=== PATIENT | female | born 2005 | race Caucasian/White ===

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

== ENCOUNTER 2025-01-29 16:37 | Emergency (ER) | payer OTHER, SELFPAY ==
--- NOTE | 2025-01-29 16:38 | ED.UPPEXIN ---
HPI - Extremity Injury (Upper) General Chief Complaint: Extremity Injury, Upper Stated Complaint: Injured Wrist Time Seen by Provider: 01/29/25 16:37 Source: patient Mode of arrival: ambulatory Limitations: no limitations History of Present Illness HPI narrative: Radha is a 19-year-old female patient presenting to the clinic today with complaints of left wrist/thumb pain x2 days. She reports 3 days ago her dog pulled her wrist from a leash. She denies any pain at that time. Developed some pain over the proximal thumb/radial wrist. Has taken Tylenol for her symptoms. 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 Denies any numbness or tingling in her fingers. Related Data Allergies Allergy/AdvReac Type Severity Reaction Status Date / Time ibuprofen AdvReac Abdominal Verified 01/29/25 16:51 Pain Review of Systems Review of Systems: Pertinent positives per HPI. Patient denies any fever, chills, rash, headache, visual changes, dizziness, cough, runny nose, sore throat, shortness of breath, chest pain, palpitations, nausea, vomiting, diarrhea, constipation, abdominal pain, or any urinary issues. [facility] [place] Past Medical History Medical History Nexplanon insertion 04/14/2020 No active medical problems Social History Social History Smoking status: Never smoker Alcohol intake: never Substance use: never Substance use type: does not use Do You Feel Safe in your Home?: Yes Lack of Transportation: No Lack of Food: Never True Current Housing: I Have Housing Concerned About Future Housing: No Difficulty Paying Gas/Electric Bills: No Difficulty Paying for Meds: No Currently Unemployed: No Education: High School Diploma/GED Difficulty w/ Childcare or Family Care: No Living arrangements: with family Occupation/Education: occupation 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 There is no relevant family history pertinent to the patient complaint. Exam Narrative: General: Well-developed, well nourished, in no apparent distress Head: Normocephalic, atraumatic. Cardio: Regular rate and rhythm, s1 and s2 normal, no murmur appreciated. Resp: Clear to auscultation bilaterally, no rhonchi, rales, wheezing or rubs. Musculoskeletal: No deformity, tender to palpation over the radius and the proximal thumb, grossly normal range of motion, positive Keshawn test, negative Phalen's and Tinel's, muscle strength strong and equal, peripheral pulse strong, no edema, no cyanosis, normal gait and station Course Course Emergency Course: Portions of this record may have been created with voice recognition software. Level of Care: Express Care Visit Vital Signs Vital signs: Vital Signs Temperature 36.3 C L 01/29/25 16:43 Pulse Rate 89 01/29/25 16:43 Respiratory Rate 18 01/29/25 16:43 Blood Pressure 125/72 01/29/25 16:43 Pulse Oximetry 99 01/29/25 16:43 Oxygen Delivery Room Air 01/29/25 16:43 Temperature 36.3 C L 01/29/25 16:43 Pulse Rate 89 01/29/25 16:43 Respiratory Rate 18 01/29/25 16:43 Blood Pressure 125/72 01/29/25 16:43 Pulse Oximetry 99 01/29/25 16:43 Oxygen Delivery Room Air 01/29/25 16:43 Vital signs reviewed MDM - Extremity Injury (Upper) MDM Narrative Medical decision making narrative: At the time of visit patient is resting comfortably on the exam table. Patient appears to be nontoxic. Plan: I suspect patient likely de Quervain tenosynovitis. Recommend wearing a thumb spica splint and taking ibuprofen as needed for pain. Supportive measures were discussed with the patient and they voiced understanding discharge instructions and agrees to treatment plan. Return precautions reviewed Differential Diagnosis Differential diagnosis: Likely sprain and strain of wrist, fracture of wrist and other (Tendinitis, de Quervain tenosynovitis) Discharge Plan Discharge Clinical Impression: De Quervain's tenosynovitis, left Patient Disposition: Home, Self-Care Condition: Stable Instructions: Antibiotic Form, De Quervain Disease (ED) Additional Instructions: I suspect you have de Quervain tenosynovitis. Rest, ice, elevate, and wear thumb spica splint as discussed May take 600 mg of motrin for pain every 8 hours as discussed. Follow up with your PCP if symptoms persist more than 1 week. Patient Language: Filipino Prescriptions: No Action metronidazole 500 mg tablet 500 mg PO Q12H Qty: 14 0RF Follow-up/Referrals: UNKNOWN,DOCTOR [Non-Staff] - Stand Alone Forms: Work/School Release IP Time of Disposition: 16:55 Quality NIHSS Nursing Documentation ED NIHSS nursing documentation: reviewed/agree
[2025-01-29 16:43] VITALS: BP 125/72; PULSE 89; RESP 18; TEMP 36.3; O2SAT 99
== END 2025-01-29 17:02 | disposition home or self-care (01) ==
PROVIDERS: Emergency Provider Nurse Practitioner Family
DX: M65.4 Radial styloid tenosynovitis [de Quervain] (principal)
CPT/HCPCS: 99212; G0463

== ENCOUNTER 2025-05-29 13:48 | Outpatient (CLI) | payer OTHER, SELFPAY ==
--- NOTE | ~2025-05-29 | US_ITS ---
EXAMINATION: US venous doppler UE RT DATE: 05/29/2025 14:17 INDICATION: Right arm swelling TECHNIQUE: Sorensen scale images with and without compression and Doppler images of the right upper extre mity veins were obtained. COMPARISON: None. FINDINGS: The right internal jugular vein, subclavian vein, axillary vein, brachial veins, basilic vein, cephal ic vein, radial vein, and ulnar vein are patent. IMPRESSION: 1. Patent right upper extremity veins. No evidence of deep venous thrombosis. Reviewed, dictated and finalized at location B.
== END 2025-05-29 13:49 | disposition home or self-care (01) ==
LOC: MICIMG 13:49
PROVIDERS: PCP Nurse Practitioner; Visit Provider Nurse Practitioner
DX: M79.89 Other specified soft tissue disorders (principal)
CPT/HCPCS: 93971

== ENCOUNTER 2025-08-20 15:15 | Emergency (ER) | payer OTHER, SELFPAY ==
[2025-08-20 15:30] VITALS: BP 114/71; PULSE 110; RESP 16; TEMP 36.8; O2SAT 100
[2025-08-20 16:03] LABS: EDSTREPNEGPOS1 Negative (Negative)
--- NOTE | 2025-08-20 16:09 | ED.URI ---
HPI - URI/Sore Throat General Chief Complaint: Upper Respiratory Infection Stated Complaint: nausea, chills, body aches Time Seen by Provider: 08/20/25 15:59 Source: patient and RN notes reviewed Mode of arrival: ambulatory Limitations: no limitations History of Present Illness HPI Narrative: 19-year-old female patient presents today complaining of chills, body aches, headache, diarrhea, and 2 episodes of vomiting. Symptoms began this morning. Last episode of vomiting was after arrival at [facility]. Denies fever, cough, congestion. Currently rates her discomfort 8/10 and has tried no OTC treatment prior to arrival. States sister and niece with similar diarrhea and vomiting symptoms that also started today. Related Data Allergies Allergy/AdvReac Type Severity Reaction Status Date / Time No Known Allergies Allergy Verified 08/20/25 16:55 PMFSH Past Medical History Medical History Nexplanon insertion 04/14/2020 No active medical problems Social History Social History Smoking status: Never smoker Alcohol intake: never Substance use: never Substance use type: does not use Do You Feel Safe in your Home?: Yes Lack of Transportation: No Lack of Food: Never True Current Housing: I Have Housing Concerned About Future Housing: No Difficulty Paying Gas/Electric Bills: No Difficulty Paying for Meds: No Currently Unemployed: No Education: High School Diploma/GED Difficulty w/ Childcare or Family Care: No Living arrangements: with family Occupation/Education: occupation 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 Please see nursing chart for further information. There is no relevant family history pertinent to the presenting complaint Exam Narrative: GENERAL: Mildly ill- appearing, well-nourished, and in no acute distress. HEAD: Normocephalic, atraumatic. EYES: EOMI. No redness or drainage. Conjunctivae normal. ENT: Mucous membranes pink and moist. Nares clear. No rhinorrhea. TMs normal bilaterally. Throat mildly erythematous without edema or exudate. Uvula midline. NECK: Normal AROM. Supple. No lymphadenopathy. CHEST: No respiratory distress. Clear to auscultation. HEART: Regular rate and rhythm. No murmur appreciated. ABDOMEN: Soft, nontender, nondistended, normal active bowel sounds. EXTREMITIES: Normal range of motion. No edema. SKIN: Warm, dry, no rash. Capillary refill normal. Normal skin turgor. NEURO: No focal deficits. Alert and oriented x3. Gait steady. PSYCH: Normal affect. No signs of depression or anxiety. Course Course Emergency Course: 1648- Patient feeling better after Zofran. Discussed dx, spread via fecal-oral route etc. Level of Care: Express [facility] Visit Vital Signs Vital signs: Vital Signs Temperature 98.3 F 08/20/25 15:30 Pulse Rate 110 H 08/20/25 15:30 Respiratory Rate 16 08/20/25 15:30 Blood Pressure 114/71 08/20/25 15:30 Pulse Oximetry 100 08/20/25 15:30 Temperature 98.3 F 08/20/25 15:30 Pulse Rate 110 H 08/20/25 15:30 Respiratory Rate 16 08/20/25 15:30 Blood Pressure 114/71 08/20/25 15:30 Pulse Oximetry 100 08/20/25 15:30 Reviewed MDM - URI/Sore Throat MDM Narrative Medical decision making narrative: 19-year-old female patient presents today complaining of chills, body aches, headache, diarrhea, and 2 episodes of vomiting. Symptoms began this morning. Last episode of vomiting was after arrival at [facility]. Sister and niece with similar symptoms. No OTC treatment prior to arrival. Upon exam, patient is mildly ill appearing with mildly erythematous throat. Rapid strep negative. Culture pending. Feeling better after Zofran. Symptoms likely viral in etiology. Prescription for Zofran sent to pharmacy. Recommend rest, oral fluids with advancement as tolerated. Patient agrees with plan. Anticipatory guidance given Differential Diagnosis Differential diagnosis: Likely viral infection and other (Gastroenteritis, food poisoning) Lab Data Attestation: I reviewed the patient's lab results. Labs: Lab Results 08/20/25 Range/Units 15:23 POC Grp A Strep Screen Negative (Negative) Critical Care Time Critical Care Time Critical Care Time: No Discharge Plan Discharge Clinical Impression: Nausea vomiting and diarrhea Patient Disposition: Home Condition: Stable Instructions: Acute Nausea and Vomiting (DC), Acute Diarrhea (ED) Additional Instructions: Your symptoms are likely due to a viral illness, which is not treated with antibiotics. Virus symptoms can last for up to 7-10days. Take the Zofran as prescribed for nausea and vomiting. Rest and stay hydrated. Follow up with your PCP in 5 days if symptoms are not improving. Go to the ER immediately if you cannot keep fluids down even with the Zofran, develops severe abdominal pain or fever that does come down with Tylenol, or are feeling dehydrated. Patient Language: Anguillan Prescriptions: New ondansetron 8 mg tablet,disintegrating 8 mg PO Q4-6H PRN (Reason: nausea and vomiting) Qty: 20 0RF No Action ondansetron 4 mg tablet,disintegrating 4 mg PO BID PRN (Reason: nausea and vomiting) Qty: 30 2RF ibuprofen 800 mg tablet 800 mg PO BID Qty: 60 4RF Rx Instructions: during cycles Follow-up/Referrals: Miguel Angel,KARRI Bennett [Primary Care Provider, Unknown] Time of Disposition: 16:55
[2025-08-20] MEDS: ONDANSETRON HCL ODT 4 MG TABLET 8 MG SUBLINGUAL (16:12)
== END 2025-08-20 17:00 | disposition home or self-care (01) ==
PROVIDERS: Emergency Provider Nurse Practitioner; PCP Nurse Practitioner
DX: R11.2 Nausea with vomiting, unspecified (principal); R19.7 Diarrhea, unspecified; J02.0 Streptococcal pharyngitis
CPT/HCPCS: 87081; 87880; 99213; A9270; G0463